=== PATIENT | female | born 1945 | race Caucasian/White ===

== ENCOUNTER → 2019-03-05 | Outpatient (CLI) | payer BC | LOC: PT 09:18 | DX: I10 Essential (primary) hypertension (principal); M17.11 Unilateral primary osteoarthritis, right knee ==

== ENCOUNTER 2019-05-06 13:00 | Outpatient (RCR) | payer BC | END 2019-06-13 | disposition still patient (30) | LOC: PT | DX: M25.561 Pain in right knee (principal); Z96.651 Presence of right artificial knee joint ==

== ENCOUNTER 2021-12-26 08:39 | Outpatient (RCR) | payer MEDICARE | END 2022-01-05 | disposition home or self-care (01) | LOC: PT | DX: M47.816 Spondylosis without myelopathy or radiculopathy, lumbar region (principal); M43.16 Spondylolisthesis, lumbar region ==

== ENCOUNTER 2022-01-07 11:30 | Outpatient (RCR) | payer MEDICARE | END 2022-02-05 | disposition home or self-care (01) | LOC: PT | DX: M47.816 Spondylosis without myelopathy or radiculopathy, lumbar region (principal); M43.16 Spondylolisthesis, lumbar region ==